=== PATIENT | female | born 1985 | race Caucasian/White ===

== ENCOUNTER 2020-04-08 12:51 | Inpatient (IN) ==
[~2020-04-08 12:51] MED LIST: Promethazine INJ(RESTRICTED) 25 MG/ML 1 ml VIAL IV ONE
[2020-04-08 14:05] LABS: ABS Lymphocytes 1.1 10^3/ul (1.0-4.8); ABS Monocytes 0.4 10^3/ul (0-0.8); ABS Neutrophils 5.4 10^3/ul (1.5-7.7); Eosinophil % 0.2 %; Hematocrit 35 % (35-47); Hemoglobin 12.2 g/dL (12.0-16.0); Lymphocyte % 15.8 %; Mean Corpuscular HGB Conc 35 g/dL (31-36); Mean Corpuscular Hemoglobin 27 pg (27-31); Mean Corpuscular Volume 79 fL (80-97); Mean Platelet Volume 9.5 fL (7.4-10.4); Nucleated Red Blood Cells % 0.1; Platelet Count 177 10^3/uL (150-450); Red Blood Count 4.45 10^6 /uL (3.70-4.87); Red Cell Distribution Width 15 % (10-15); White Blood Count 6.9 10^3/uL (3.5-10.8)
[2020-04-08 14:13] LABS: Urine Appearance Clear; Urine Bilirubin Negative (Negative); Urine Blood Negative (Negative); Urine Color Yellow; Urine Glucose Negative (Negative); Urine Ketones Negative (Negative); Urine Nitrite Negative (Negative); Urine Protein Negative (Negative); Urine Specific Gravity 1.006 (1.010-1.030); Urine Urobilinogen Negative (Negative)
[2020-04-08 14:30] LABS: Urine Benzodiazepine Screen None Detected (None Detect); Urine Cannabinoids Screen None Detected (None Detect); Urine Opiates Screen None Detected (None Detect)
[2020-04-08] MEDS: Lactated Ringers 1000 ml BAG 1,000 ML IV ONE ×2 (20:45→22:25)
[2020-04-08] MEDS: Oxytocin in LR 20 UNITS/1,000 ML BAG IVPB SCH (21:30)
[2020-04-08] MEDS ORDERED: Promethazine INJ(RESTRICTED) 25 MG/ML 1 ml VIAL IV ONE (23:43)
[2020-04-09] MEDS: Morphine 10 MG/ML VIAL (1 ml) IV ONE (00:14)
[2020-04-09] MEDS: Lactated Ringers 1000 ml BAG 1,000 ML IV ONE (03:30)
[2020-04-09] MEDS: Oxytocin in LR 20 UNITS/1,000 ML BAG IVPB SCH (15:18)
[2020-04-09] MEDS ORDERED: Lactated Ringers 1000 ml BAG 1,000 ML IV ONE (15:30)
[2020-04-09] MEDS ORDERED: Promethazine INJ(RESTRICTED) 25 MG/ML 1 ml VIAL IV PRN (20:20)
[2020-04-09] MEDS ORDERED: Morphine 10 MG/ML VIAL (1 ml) IV ONE (20:22)
[2020-04-10] MEDS ORDERED: OBEPIDURAL 250 ML EPIDURAL ONE (00:24)
[2020-04-10] MEDS ORDERED: Lactated Ringers 1000 ml BAG 1,000 ML IV ONE (01:32)
[2020-04-10] MEDS ORDERED: Phenylephrine 40 mcg/mL 10mL (400mcg) SYRINGE IV PUSH PRN ×2 (01:32)
[2020-04-10] MEDS ORDERED: EPHEDrine (Pressors) 50 MG/ML VIAL IV PUSH PRN ×2 (01:32)
[2020-04-10] MEDS ORDERED: Lactated Ringers 1000 ml BAG 500 ML IV PRN (01:32)
[2020-04-10] MEDS ORDERED: Sodium Citrate/Citric Acid LIQ 15 ML UDC PO PRN (01:32)
[2020-04-10] MEDS ORDERED: OBEPIDURAL 250 ML EPIDURAL SCH (02:00)
[2020-04-10] MEDS ORDERED: Lactated Ringers 1000 ml BAG 1,000 ML IV SCH ×2 (02:00→21:00)
[2020-04-10] MEDS ORDERED: fentaNYL 100 mcg/2 ml 50 MCG/ML VIAL ONE ×2 (09:27→14:35)
[2020-04-10] MEDS: Lactated Ringers 1000 ml BAG 1,000 ML IV SCH ×5 (09:43→17:58)
[2020-04-10] MEDS ORDERED: ceFOXitin 2 GM IVPREMIX 2 GM/50 ML BAG ONE (14:18)
[2020-04-10] MEDS ORDERED: Morphine PF AMP (0.5MG/ML) 5 MG/10 ML AMP ONE (14:36)
[2020-04-10] MEDS ORDERED: Phenylephrine 40 mcg/mL 10mL (400mcg) SYRINGE ONE (14:50)
[2020-04-10] MEDS ORDERED: Oxytocin 10 UNITS/ML 1 ML VIAL ONE (15:01)
[2020-04-10] MEDS ORDERED: Midazolam 2 mg/2 ml VIAL 1 mg/ml 2 ml VIAL (2 mg) ONE ×2 (15:13→15:34)
[2020-04-10] MEDS ORDERED: Ketamine HCL 50 mg/ml 10 ml VIAL (500 MG) ONE (15:25)
[2020-04-10] MEDS ORDERED: Succinylcholine 200 mg VIAL 20 mg/ml 10 ml VIAL (200 mg) ONE (15:38)
[2020-04-10] MEDS ORDERED: Propofol 10 MG/ML 20 ML BTL ONE (15:38)
[2020-04-10] MEDS ORDERED: Dexamethasone IV 4 MG/ML VIAL 1 ml VIAL ONE (15:57)
[2020-04-10] MEDS ORDERED: Lidocaine 2% PF 5 ML VIAL ONE (16:24)
[2020-04-10] MEDS ORDERED: fentaNYL 100 mcg/2 ml 50 MCG/ML VIAL IV PRN (16:25)
[2020-04-10] MEDS ORDERED: Acetaminophen IV 1 GM/100ML 1,000 MG/100 ML VIAL IVPB ONE (16:25)
[2020-04-10] MEDS ORDERED: Naloxone 0.4 mg VIAL 0.4 mg/ml 1 ml VIAL IV PRN ×2 (16:25→16:27)
[2020-04-10] MEDS ORDERED: Metoclopramide 5 MG/ML VIAL (10 mg) IV PRN (16:25)
[2020-04-10] MEDS ORDERED: Naloxone 4 mg VIAL (10 ml) 2 MG in NS 0.9% 250 ml 250 ML IV PRN (16:27)
[2020-04-10] MEDS ORDERED: Ondansetron 4 mg VIAL 2 MG/ML 2 ml VIAL IV PRN (16:27)
[2020-04-10] MEDS ORDERED: Dibucaine 1% OINT 28.35 GM TUBE PR PRN (20:37)
[2020-04-10] MEDS ORDERED: Witch Hazel PAD JAR TOPICAL PRN (20:37)
[2020-04-10] MEDS ORDERED: Glycerin ADULT 2.4 gm SUPP PR PRN (20:37)
[2020-04-10] MEDS: oxyCODONE/Acetamin 5/325 mg TAB PO PRN (21:06)
[2020-04-11] MEDS: oxyCODONE/Acetamin 5/325 mg TAB PO PRN ×2 (00:54→05:10)
[2020-04-11 09:14] LABS: Hematocrit 26 % (35-47); Hemoglobin 8.6 g/dL (12.0-16.0); Mean Corpuscular HGB Conc 34 g/dL (31-36); Mean Corpuscular Hemoglobin 27 pg (27-31); Mean Corpuscular Volume 80 fL (80-97); Red Blood Count 3.19 10^6 /uL (3.70-4.87); Red Cell Distribution Width 15 % (10-15); White Blood Count 5.6 10^3/uL (3.5-10.8)
[2020-04-11 09:15] LABS: ABS Lymphocytes 0.4 10^3/ul (1.0-4.8); ABS Monocytes 0.3 10^3/ul (0-0.8); ABS Neutrophils 4.9 10^3/ul (1.5-7.7); Eosinophil % 0.1 %; Lymphocyte % 7.3 %
[2020-04-11 10:05] LABS: Mean Platelet Volume 9.2 fL (7.4-10.4); Platelet Count 88 10^3/uL (150-450)
[2020-04-13 07:44] VITALS: BP 128/77
[2020-04-13] MEDS ORDERED: Influenza VAC *QUAD* 2020-21* 0.5 ML SYRINGE IM ONE (10:15)
== END 2020-04-13 11:00 | disposition home or self-care (01) | DRG 788 ==
LOC: MCHOBOUT 12:51 → MCHOB 13:29
PROVIDERS: ADMIT Midwife; ATTEND Obstetrics & Gynecology